=== PATIENT | male | born 2000 | race Hispanic/Latino ===

== ENCOUNTER 2025-03-09 10:49 | Emergency (ER) | payer OTHER ==
[~2025-03-09] VITALS: Ht 167 cm; Wt 159.0 kg
[2025-03-09] MEDS ORDERED: CEPHALEXIN 500 MG CAP PO SCH (11:15)
[2025-03-09] MEDS ORDERED: TETANUS/DIPHTHERIA TOX ADULT 0.5 ML SYR ONE (12:19)
[2025-03-09] MEDS: TETANUS/DIPHTHERIA TOX ADULT 0.5 ML SYR IM ONE (12:34)
[2025-03-09] MEDS ORDERED: CEPHALEXIN500 MG PO (13:05)
[2025-03-09] MEDS: CEPHALEXIN MONOHYDRATE 250 MG CAP PO SCH (13:08)
[2025-03-09] MEDS: BACITRACIN ZINC 0.9GM TP ONE ×2 (13:11)
[2025-03-09] MEDS: LIDOCAINE HCL 1% 2 ML AMP INJ ONE (13:11)
[2025-03-09] MEDS: LIDOCAINE HCL 2% LOCAL 20 ML VIAL INJ ONE (13:11)
[2025-03-09 13:19] VITALS: TEMP 97.8; O2SAT 98
== END 2025-03-09 13:19 | disposition home or self-care (01) ==
LOC: EDBD 10:49 → FSED 10:57
DX: S01.01XA Laceration without foreign body of scalp, initial encounter (principal); W20.8XXA Other cause of strike by thrown, projected or falling object, initial encounter; Y92.89 Other specified places as the place of occurrence of the external cause
CPT/HCPCS: 12002; 70450; 90471; 90714; 96372; 99284; J2003 ×2